=== PATIENT | female | born 1970 | race Caucasian/White ===

== ENCOUNTER → 2020-09-25 | Outpatient (CLI) | payer BC, OTHER ==
[~2020-09-25] VITALS: Ht 170.2 cm; Wt 127.0 kg
[~2020-09-25] MED LIST: DICLOFENAC POTA50 MG PO; EFFEXOR XR150 MG PO; IBUPROFEN 800800 M1 PO; LISINOPRIL20 MG PO
--- NOTE | ~2020-09-25 | HPC ---
[facility] [place] [address] PAIN MANAGEMENT CONSULTATION Name: LLOYD BOYD Room #: REG BELKYS Pari.#: [id number] Admission: 09/25/20 Attend Phys: Richard Morelos DO Discharge: Date of : 74 Report #: [id number] THIS REPORT FOR: cc: Bita Edwards,Bita Muse,Richard Kathleen DO ~ DATE OF SERVICE: 09/25/2020 CHIEF COMPLAINT: Axial back pain, bilateral buttock and posterolateral thigh pain. HISTORY OF PRESENT ILLNESS: As you know, the patient is a pleasant 50-year-old female who reports ongoing low back pain that has been present since 06/14/2018. The patient states that her pain began soon after removal of her lap band, which led to rapid weight gain. The patient reports about a 100-pound weight gain since removal of lap band 2 years ago and this has led to increasing and ongoing pain in the low back. The patient states that her symptoms are present throughout the day, exacerbated with activity such as bending forward and trying to stand up from the bending position, seated for long periods of time and standing for a prolonged time on concrete floors. She is trialled [id number] medication without much in the way of benefit taking 800 mg ibuprofen twice a day along with the use of Tylenol. She sought evaluation through her primary care physician, who started the patient on indomethacin but patient is experiencing GI distress with that medication and has not been taking it consistently due to the dyspepsia. The patient reports that she has suffered no injury or trauma to the lower lumbar spine. She states the pain has just progressively worsened. Due to lack of improvement with conservative treatment options, the patient was subsequently referred to our clinic to discuss options for treatment. The patient indicates today her pain is steady. Describes pain as shooting, aching and tender. Places current pain score at 8/10, daily average at 8-10/10, worst pain has been is 10/10. The patient states pain is exacerbated with bending over, trying to stand up from a bent over position, walking, standing for long periods of time on concrete. Pain is improved with sitting, lying down and stretching. She has been referred to our service to discuss treatment options for axial back pain and bilateral buttock and posterolateral thigh pain. PAST MEDICAL HISTORY: 1. Hypertension. 2. History of nephrolithiasis. 3. Morbid obesity. 4. Depression. PAST SURGICAL HISTORY: 1. Bilateral shoulder surgery secondary to rotator cuff injury in 2014. [facility] [address] [place] [address] PAIN MANAGEMENT CONSULTATION Name: LLOYD BOYD [id number] Admission: 09/25/20 Attend Phys: Richard Morelos DO Discharge: Date of : 74 Report #: [id number] 2. Lap band surgery 2018. 3. Tonsillectomy, 2004. SOCIAL HISTORY: The patient smokes half pack tobacco per day, and has done so for 20 years. Denies IV or illicit drug use. Admits to occasional alcohol beverage. She is a automobile rental representative. She is working, not receiving workmen's compensation nor is trying to obtain disability benefits. She is not having litigation in regards to pain. She is unaccompanied at today's visit. REVIEW OF SYSTEMS: Positive for weight gain, mouth sores and bruxism, shortness of breath with walking or lying flat, abdominal pain, frequent urination, nocturia, nephrolithiasis, numbness and tingling sensations, excessive thirst, urination, chronic low back pain, bilateral buttock and posterolateral thigh pain. All other review of systems negative per 12-point review of systems other than those listed in history of present illness. Pain impact score 53 of 70 indicating severe interference of daily activities secondary to pain. ALLERGIES: No reported drug allergies. CURRENT MEDICATIONS: Ibuprofen 800 mg b.i.d., indomethacin 1 tab b.i.d., venlafaxine 150 mg once a day, lisinopril 20 mg once a day. IMAGING: MRI of lumbar spine obtained 02/26/2020, shows mild posterior facet arthropathy at L4-L5 and L5-S1. There is normal lumbar vertebral heights. No evidence of acute fracture or dislocations. No central canal nor neural foraminal stenosis at any level. No changes in bone marrow. PHYSICAL EXAMINATION: VITAL SIGNS: Blood pressure 133/89, pulse 106, respiratory rate 18 and unlabored. The patient is 99% on room air. Height 5 feet 7 inches tall, weight 280 pounds, BMI calculated 43.8. GENERAL: Well-developed, well-nourished, well-hydrated, class III, morbidly obese 50-year-old female, appears her stated age. She is in no acute distress, awake, alert and oriented x 3. Current pain score rated 8-10/10. HEENT: Normocephalic, atraumatic. Pupils are round, and responsive. The patient is wearing a mask in compliance with COVID-19 regulations. LUNGS: Appear clear. No wheeze or rhonchi. No appreciable rales. CARDIOVASCULAR: Regular. No appreciable gallop, no rub. ABDOMEN: Soft, obese, normoactive bowel sounds. EXTREMITIES: Show no clubbing, no cyanosis. No appreciable edema. MUSCULOSKELETAL: Lower extremity strength is equal and symmetrical 5/5, intact to light touch from L1 through S2 dermatomes. Seated straight leg raising negative. Supine straight leg raising negative. Delta's test is negative. Modified Gaenslen's positive for axial low back pain. Ankle clonus negative. [facility] [address] [place] [address] PAIN MANAGEMENT CONSULTATION Name: LLOYD BOYD [facility] #: [facility] [id number] Admission: 09/25/20 Attend Phys: Richard Morelos DO Discharge: Date of : 74 Report #: [id number] Babinski is negative. Muscle bulk and tone is symmetrical in comparing lower extremities. Lumbar provocation testing including extension, rotation, lateral flexion all intensify axial back pain. Pain is slightly improved with forward flexion of lumbar spine. Pain is elicited with standing from the forward flexed position. ASSESSMENT: 1. Facet arthropathy of the lumbar spine. 2. Lumbosacral spondylosis without radiculopathy. 3. Morbid obesity. PLAN: 1. Based on today's physical exam and history the patient has provided, the description the patient uses in regards to pain as well as location of symptoms, it would appear the patient is suffering from facet arthropathy of the lumbar spine. This is consistent with the patient's distribution of symptoms starting in the low back, radiating to the buttock and posterolateral thigh, but not below the knee. It is also consistent with the descriptors the patient uses in regards to pain, which are shooting, aching and tender. There is no numbness and tingling. We have discussed with the patient the findings of her MRI. We are pleased to advise at this point, she is showing only mild changes at the L4-L5 and L5-S1 level, but given her excessive weight, this could rapidly develop into sidw-uk-utteubxc, iqoorhyk-uu-uhyakf and ultimately advanced arthritic changes. We have discussed with the patient the treatment options based on her physical exam and MRI today to treat facet arthropathy pain. We discussed physical therapy, stretching exercise, core strengthening and a concerted effort at weight loss as the gold standard of treatment to address mild facet arthropathy of the lumbar spine. We discussed medication management, adjusting the anti-inflammatories in hopes of providing better analgesic benefit. We also discussed intra-articular facet injections as a treatment course and radiofrequency lesioning of medial branch nerves of the lumbar spine. After reviewing risks and benefits of all proposed treatment options, the patient chose to begin with facet injections under fluoroscopic guidance. 2. The patient was advised due to third constitution party payer restrictions, authorization would have to be obtained before the patient could undergo bilateral L4-L5, L5-S1 intraarticular facet injections to be performed under fluoroscopic guidance. Authorization should take anywhere from 4-7 working days. We will begin that process immediately. Once the authorization process has been completed, we will have the patient return to undergo the procedure in hopes of improving her baseline pain and allowing the patient return to relative normal function. 3. The patient will discontinue her indomethacin as this is causing severe dyspepsia and discontinue her ibuprofen. In place we will be using diclofenac [address] [address] PAIN MANAGEMENT CONSULTATION Name: LLOYD BOYD Room #: REG BELKYS Neil#: [id number] Admission: 09/25/20 Attend Phys: Richard Morelos DO Discharge: Date of : 74 Report #: [id number] potassium 50 mg dose 1 tab p.o. b.i.d. to t.i.d. with meals. I have given the patient #90 tablets. She will watch for dyspepsia, worsening of blood pressure, lower extremity edema with use. She is not to use any other nonsteroidal anti-inflammatory with the diclofenac. 4. The patient and I had a very long discussion about her increasing weight. This directly correlates to the increase in back pain. She has gained over 100 pounds of weight after her lap band was removed. I am in favor of the patient looking towards gastric bypass surgery to assist in weight loss as her weight is directly contributing to her axial back pain due to changes in the arch of the lumbar spine required to maintain balance with increased weight that is a centripetal in its distribution. This has led to hyperlordotic curvature of the lumbar spine placing the facet joints at L4-L5 and L5-S1 in direct opposition causing more strain and increasing arthritic changes. By alleviating some of the weight the patient will be able to change her stance reducing the hyperlordotic curvature as the center of gravity will be moved more posteriorly and allow for less hyperlordotic curvature. I have advised the patient to follow up with her bariatric surgeon in regards to our concerns of the effects of her weight on her low back. 5. We wish to thank the referring physician for the opportunity to see this patient in consultation. We will keep you apprised of response to treatment as we address facet arthropathy pain. Again, we wish to thank you for the opportunity to see the patient in consultation. By: [id number] Richard Morelos DO /nt
[2020-09-25 09:19] VITALS: BP 133/89
--- NOTE | 2020-09-25 09:35 | NUR ---
Pain Clinic Assessment: 1. History of Osteoarthritis: L-SPINE History of Rheumatoid Arthritis: Not Applicable 2. Height: 5 ft. 7 in. 170.2 cm. Weight: 280.0 lb. oz. 127.008 kg. Patient's BMI: 43.8 3. Vital Signs: BP: 133/89 Pulse: 106 Resp: 18 Temp: 02 Sat: 99 ECG Mon: 4. Pain Intensity: 8-10 5. Fall Risk: Dizziness: N Needs help standing or walking: N Fallen in the last 3 months: N Fall risk comments: 6. Patient on Blood Thinner: None 7. History of Hypertension: Y 8. Opioid Therapy greater than 6 weeks: N Opiate Contract Signed: 9. Risk Assessment Tool Provided: 0-LOW RISK 10. Functional Assessment Tool: 53/70 11. Recreational Drug Use: Never Drug Type: Tobacco Use: Current Every Day Smoker Tobacco Type: Cigarettes Amount or Packs/day: 1/2 How Many Years: 20 Alcohol Use: Yes Frequency: Special Occasions Quant: 2-3 DRINKS/YEAR
== END ==
LOC: PAIN 08:45
PROVIDERS: ATTEND Anesthesiology Pain Medicine
DX: M47.817 Spondylosis without myelopathy or radiculopathy, lumbosacral region (principal); E66.01 Morbid (severe) obesity due to excess calories; Z88.8 Allergy status to other drugs, medicaments and biological substances; Z79.899 Other long term (current) drug therapy

== ENCOUNTER → 2020-10-02 | Outpatient (CLI) | payer BC, OTHER ==
[~2020-10-02] VITALS: Ht 170.2 cm; Wt 125.5 kg
[2020-10-02 09:15] VITALS: BP 121/84
--- NOTE | 2020-10-02 09:19 | NUR ---
Pain Clinic Assessment: 1. History of Osteoarthritis: L-SPINE History of Rheumatoid Arthritis: Not Applicable 2. Height: 5 ft. 7 in. 170.2 cm. Weight: 276.6 lb. oz. 125.465 kg. Patient's BMI: 43.3 3. Vital Signs: BP: 121/84 Pulse: 110 Resp: 18 Temp: 02 Sat: 97 ECG Mon: 4. Pain Intensity: 6 5. Fall Risk: Dizziness: N Needs help standing or walking: N Fallen in the last 3 months: N Fall risk comments: 6. Patient on Blood Thinner: None 7. History of Hypertension: Y 8. Opioid Therapy greater than 6 weeks: N Opiate Contract Signed: 9. Risk Assessment Tool Provided: 0-LOW RISK 10. Functional Assessment Tool: 53/70 11. Recreational Drug Use: Never Drug Type: Tobacco Use: Current Every Day Smoker Tobacco Type: Amount or Packs/day: How Many Years: Alcohol Use: Yes Frequency: Quant:
== END | disposition home or self-care (01) ==
LOC: PAIN 08:45
PROVIDERS: ATTEND Anesthesiology Pain Medicine
DX: M47.817 Spondylosis without myelopathy or radiculopathy, lumbosacral region (principal); M47.816 Spondylosis without myelopathy or radiculopathy, lumbar region; G89.29 Other chronic pain; E66.01 Morbid (severe) obesity due to excess calories; F17.210 Nicotine dependence, cigarettes, uncomplicated; Z98.890 Other specified postprocedural states; Z79.899 Other long term (current) drug therapy; Z68.41 Body mass index [BMI] 40.0-44.9, adult

== ENCOUNTER → 2021-04-29 | Outpatient (CLI) | payer OTHER ==
[~2021-04-29] VITALS: Ht 177.8 cm; Wt 117.7 kg
[2021-04-29 09:17] VITALS: BP 122/78
--- NOTE | 2021-04-29 09:48 | NUR ---
Pain Clinic Assessment: 1. History of Osteoarthritis: L-SPINE History of Rheumatoid Arthritis: Not Applicable 2. Height: 5 ft. 10 in. 177.8 cm. Weight: 259.4 lb. oz. 117.663 kg. Patient's BMI: 37.2 3. Vital Signs: BP: 122/78 Pulse: 106 Resp: 20 Temp: 02 Sat: 98 ECG Mon: 4. Pain Intensity: 8 5. Fall Risk: Dizziness: N Needs help standing or walking: N Fallen in the last 3 months: N Fall risk comments: 6. Patient on Blood Thinner: None 7. History of Hypertension: Y 8. Opioid Therapy greater than 6 weeks: N Opiate Contract Signed: 9. Risk Assessment Tool Provided: 0-LOW RISK 10. Functional Assessment Tool: 53/70 11. Recreational Drug Use: Never Drug Type: Tobacco Use: Current Every Day Smoker Tobacco Type: Cigarettes Amount or Packs/day: 1/2 EVERY 3 How Many Years: Alcohol Use: Yes Frequency: Quant:
--- NOTE | 2021-04-30 11:23 | HPC ---
[facility] [place] [address] PAIN MANAGEMENT CONSULTATION Name: LLOYD BOYD Room #: REG BELKYS Rashaad#: [id number] Admission: 04/29/21 Attend Phys: Richard Moreols DO Discharge: Date of : 74 Report #: [id number] THIS REPORT FOR: cc: Bita Edwards,Bita Muse,Richrad Kathleen DO ~ cc: Bita Edwards DATE OF SERVICE: 04/29/2021 CHIEF COMPLAINT: Axial back pain, upper buttock and posterolateral thigh pain. HISTORY OF PRESENT ILLNESS: As you know, the patient is a very pleasant 50-year-old female with longstanding history of low back pain, bilateral upper buttock and posterolateral thigh pain, presenting on 06/14/2018. She was seen in our clinic per the request of the referring physician on 09/25/2020, diagnosed with facet arthropathy of the lumbar spine with lumbosacral spondylosis without radicular symptoms. She underwent intraarticular facet injections under fluoroscopic guidance on 10/02/2020 with excellent improvement in symptoms. She reports with that injection 80% improvement in overall pain, lasting until just recently. She believes that her symptoms have been exacerbated with increasing activity at work. She denies any new injury or trauma. She returns today in followup, visit requesting to undergo next in the series of bilateral intraarticular facet injections under fluoroscopic guidance to address facet arthropathy pain. ALLERGIES: No known drug allergies. CURRENT MEDICATIONS: Diclofenac potassium 50 mg twice a day, lisinopril 20 mg once a day, venlafaxine XR 150 mg once a day, ibuprofen 800 mg b.i.d. SOCIAL HISTORY: The patient continues to smoke half pack tobacco per day and has done so for greater than 20 years. Denies IV or illicit drug use. Admits to occasional alcohol beverage. She is working, not receiving workmen's compensation, unaccompanied today. IMAGING: No new imaging available. PHYSICAL EXAMINATION: VITAL SIGNS: Blood pressure 122/78, pulse 106, respiratory rate is 20. She is O2 sat 98% on room air. Height 5 feet 10 inches tall, weight 259.4 pounds, BMI calculated 37.5. GENERAL: Well-developed, well-nourished, well-hydrated exogenously obese 50-year-old female appearing stated age. Pain is rated today anywhere up to 8/10. HEENT: Normocephalic, atraumatic. Pupils are round. She is wearing a mask in compliance with COVID-19 regulations. She has significant hair loss [address] [address] PAIN MANAGEMENT CONSULTATION Name: LLOYD BOYD [id number] Admission: 04/29/21 Attend Phys: Richard Morelos DO Discharge: Date of : 74 Report #: [id number] to chemotherapy. LUNGS: Appear clear. No wheeze, rhonchi, or rales. CARDIOVASCULAR: Tachycardic. No appreciable gallop. No rub. ABDOMEN: Soft, obese. EXTREMITIES: Show no clubbing, no cyanosis, no edema. MUSCULOSKELETAL: Lower extremity strength equal and symmetrical 5/5. Muscle bulk and tone is equal and symmetrical in lower extremities. Seated straight leg raising negative. Supine straight leg raising negative. Delta's test is negative. Modified Gaenslen's positive for axial low back pain. Lumbar provocation testing is met with axial back pain with rotation, lateral flexion, and extension. ASSESSMENT: 1. Facet arthropathy. 2. Lumbosacral spondylosis without myelopathy or radiculopathy. 3. Morbid obesity. PLAN: 1. Based on today's physical exam, the history the patient has provided, the description the patient uses in regards to pain as well as location of symptoms, it would appear she is suffering from recurrent bilateral L4-5, L5-S1 intraarticular facet arthropathy. She had done very well with previous intra-articular facet injections performed in 09/2019 with resolution of symptoms until recently above to 80% improvement. She has returned today in followup visit with recurrence of axial back pain, buttock and posterolateral thigh pain consistent with facet arthropathy. We discussed with the patient the treatment options we had available and she wished to begin with intra-articular facet injections given the efficacy she received with the initial injections. 2. The patient was advised due to third constitution party payer restrictions, authorization would have to be obtained before the patient could undergo those injections. We will begin that authorization process immediately. I am hopeful we will have those authorizations completed, so the patient can undergo the intra-articular facet injections as quickly as possible. 3. No medication changes made at today's visit. The patient will continue current medical therapy as prior prescribed. 4. We plan to see the patient back in followup visit as quickly as possible to undergo bilateral L4-5, L5-S1 intraarticular facet injections under fluoroscopic guidance in hopes of improving axial back pain due to facet arthropathy. <ELECTRONICALLY SIGNED> By: Richard Morelos DO 04/30/21 [id number] Richard Morelos, DO /nt
== END ==
LOC: PAIN 09:00
PROVIDERS: ATTEND Anesthesiology Pain Medicine
DX: M47.817 Spondylosis without myelopathy or radiculopathy, lumbosacral region (principal); M79.629 Pain in unspecified upper arm; M79.659 Pain in unspecified thigh; E66.01 Morbid (severe) obesity due to excess calories; Z79.899 Other long term (current) drug therapy

== ENCOUNTER → 2021-05-07 | Outpatient (CLI) | payer OTHER ==
[~2021-05-07] VITALS: Ht 177.8 cm; Wt 116.7 kg
[~2021-05-07] MED LIST changes: +NABUMETONE 500500 M2 PO
[2021-05-07 08:58] VITALS: BP 133/83
--- NOTE | 2021-05-07 09:08 | NUR ---
Pain Clinic Assessment: 1. History of Osteoarthritis: L-SPINE History of Rheumatoid Arthritis: Not Applicable 2. Height: 5 ft. 10 in. 177.8 cm. Weight: 257.2 lb. oz. 116.665 kg. Patient's BMI: 36.9 3. Vital Signs: BP: 133/83 Pulse: 103 Resp: 18 Temp: 02 Sat: 96 ECG Mon: 4. Pain Intensity: 3-4 5. Fall Risk: Dizziness: N Needs help standing or walking: N Fallen in the last 3 months: N Fall risk comments: 6. Patient on Blood Thinner: None 7. History of Hypertension: Y 8. Opioid Therapy greater than 6 weeks: N Opiate Contract Signed: 9. Risk Assessment Tool Provided: 0-LOW RISK 10. Functional Assessment Tool: 53/70 11. Recreational Drug Use: Never Drug Type: Tobacco Use: Current Every Day Smoker Tobacco Type: Cigarettes Amount or Packs/day: 1/2 PACK How Many Years: Alcohol Use: Yes Frequency: Special Occasions Quant: ONCE DRINK A YEAR
--- NOTE | 2021-05-13 08:44 | HPC ---
[facility] [place] [address] PAIN MANAGEMENT CONSULTATION Name: LLOYD BOYD Room #: REG CLAdama Rashaad#: [id number] Admission: 05/07/21 Attend Phys: Richard Morelos DO Discharge: Date of : 74 Report #: [id number] THIS REPORT FOR: cc: Bita Edwards,Bita Muse,Richard Kathleen DO ~ cc: Bita Edwards DO DATE OF SERVICE: 05/07/2021 REFERRING PHYSICIAN: Dr. Bita Edwards. CHIEF COMPLAINT: Axial back pain, upper buttock and posterolateral thigh pain. HISTORY OF PRESENT ILLNESS: As you know, the patient is a very pleasant 50-year-old female with longstanding history of axial back pain, bilateral upper buttock and posterolateral thigh pain. The patient reports pain began 06/14/2018. She was seen in our clinic per the request of referring physician on 09/25/2020, diagnosed with facet arthropathy of lumbar spine and lumbosacral spondylosis without radicular component. She underwent bilateral intra-articular facet injections at that date, with excellent benefit, 80% improvement in overall pain and lasting until just prior to 04/29/2021 return. She requested a repeat series of injections, which required authorization. We have contacted the patient's third republican payer in regards to allowing the patient to undergo the next in the series of intraarticular facet injections. They have advised us and the patient that intraarticular facet injections with steroid medication is classified as an experimental procedure, though it has been a standard of care for over the past 18 years. The patient's insurers indicates that they would not be willing to cover the injection that she underwent at the last visit. They advised that they would be more than willing to provide the opportunity for the patient to undergo diagnostic facet injections without nursing home medication benefit, utilizing only local anesthetic, which will provide only a couple hours of relief. They would also be willing to allow the patient to undergo medial branch nerve blocks and radiofrequency lesioning. The patient had been advised of this. She returns today to discuss those options. ALLERGIES: No known drug allergies. CURRENT MEDICATIONS: Diclofenac potassium 50 mg b.i.d., lisinopril 20 mg per day, venlafaxine XR 150 mg once a day, ibuprofen 800 mg b.i.d. SOCIAL HISTORY: The patient continues to smoke half pack of tobacco a day, has done so for 20 years. Denies IV or illicit drug use. Admits to an occasional alcohol beverage. She is working, not receiving workmen's compensation, unaccompanied today. [address] [address] PAIN MANAGEMENT CONSULTATION Name: LLOYD BOYD Room #: REG [facility]TSDavidDavid#: [id number] Admission: 05/07/21 Attend Phys: Richard Morelos DO Discharge: Date of : 74 Report #: [id number] IMAGING: No new imaging available. PHYSICAL EXAMINATION: VITAL SIGNS: Blood pressure 133/83, pulse 103, respiratory rate 18 and unlabored. The patient is 96% on room air. Height 5 feet 10 inches tall, weight 257.2 pounds, BMI calculated 36.9. GENERAL: Well-developed, well-nourished, well-hydrated exogenously obese 50-year-old female appearing stated age. Pain is rated today at around 3-4/10. HEENT: Head is normocephalic, atraumatic. Pupils are round. She is wearing a mask in compliance with COVID-19 regulations in hospital policies. EXTREMITIES: Show no clubbing, no cyanosis, no edema. MUSCULOSKELETAL: Lower extremity strength remains symmetrical again today 5/5. Muscle bulk and tone is equal and symmetrical in lower extremities. Straight leg raising both in the seated and supine positions are negative. Fabere's test is negative. Modified Gaenslen's positive for axial low back pain. Lumbar provocation testing including extension, rotation, lateral flexion all intensify axial back pain. Forward flexion slightly improve symptoms, consistent with facet arthropathy. ASSESSMENT: 1. Facet arthropathy of lumbar spine. 2. Lumbosacral spondylosis without myelopathy or radiculopathy. 3. Obesity. 4. Chronic intractable pain. PLAN: 1. The patient returns today in followup visit having noted 80% improvement in overall pain with the intraarticular facet injection provided at our initial visit of 10/02/2020. These lasted for an extended period of time until just prior to her visit of 04/29/2021. The patient had returned to undergo intraarticular facet injections with the utilization of triamcinolone as the agent to provide nursing home benefit. The patient has been advised her third republican payer is unwilling to cover that procedure, stating that it is an experimental procedure and they would not cover that now or in the future. This is unfortunate as it has been a standard of care for years to treat axial back pain. Given the fact the patient was receiving such excellent benefit there was no reason to the treatment plan. The [id number] review that I had with the third republican payer indicates that we could have the patient undergo diagnostic intra-articular facet injections with local anesthetic, which will provide her hours of relief of symptoms or we can look towards radiofrequency lesioning. The patient was resistant to that idea in the initial visit and is resistant to that idea now. We discussed with following the other treatment options we have available. We discussed physical therapy, stretching exercise, core strengthening and weight loss as a treatment approach. We discussed utilization of nonsteroidal anti-inflammatories on a consistent basis. Her findings on imaging study and evaluation do not warrant higher dose opioid like medications. [facility] [address] [place] [address] PAIN MANAGEMENT CONSULTATION Name: LLOYD BOYD Room #: REG Adama Neil#: [id number] Admission: 05/07/21 Attend Phys: Richard Morelos DO Discharge: Date of : 74 Report #: [id number] We have also advised the patient that with recent lawsuit against opioid distributors and opioid pharmacy distribution sites that these medications are becoming less prevalent and less available and do not have any nursing home benefit for chronic pain. We did discuss with the patient the other option that she has, which is to look towards radiofrequency lesioning medial branch nerves to address axial back pain if at all possible and surgical options. The patient was quite upset that she was unable to be provided the injection that she had requested and had seen such excellent benefit with. She is understandably upset given the fact that she is paying for insurance who is not willing to provide a known and proven procedure for pain control. 2. The patient will be started on nabumetone 500 mg dose 1 tab p.o. t.i.d. She will stop all other nonsteroidal anti-inflammatories. She is given #90 tablets with 2 refills. She can follow up with her PCP to continue this treatment option or return to our clinic in 3 months for refills. 3. I have advised the patient if she wishes she may contact her third republican payer and discuss her case with more fully, as she is the consumer of the product that the insurer is providing and they may be willing to provide improved customer service and discuss this with the patient further. I have also advised the patient if she wishes, she can contact the board of insurers in the [facility] and report the third republican payer for practicing medicine without a license. The insurer in this case has made it impossible for us to treat the patient with a proven and viable treatment option, which is considered still standard of care for treatment for facet arthropathy and thus it is our opinion that they are practicing medicine. They do not have a file on this patient nor have they done any physical exams or evaluations of the patient to determine whether or not this is an appropriate and viable treatment course. The patient could avail herself of the potential to contact the board of insurers to discuss with them her concerns about her third republican payer. 4. We will see the patient back in followup visit on an as needed basis. We request that the patient contact our clinic to advise us if she is having side effects to the nabumetone. She can follow up with Neurosurgery if she wishes to discuss surgical options of fusion. <ELECTRONICALLY SIGNED> By: Richard Morelos DO 05/13/21 [id number] Richard Morelos DO /nt
== END ==
LOC: PAIN 08:26
PROVIDERS: ATTEND Anesthesiology Pain Medicine
DX: G89.29 Other chronic pain (principal); M47.816 Spondylosis without myelopathy or radiculopathy, lumbar region; M47.817 Spondylosis without myelopathy or radiculopathy, lumbosacral region; E66.9 Obesity, unspecified; Z79.899 Other long term (current) drug therapy